=== PATIENT | male | born 1940 | race Caucasian/White ===

== ENCOUNTER → 2018-02-26 | Day surgery (SDC) | payer MEDICARE, BC ==
[~2018-02-26] MED LIST: ACETAMINOPHEN 325 MG TABLET. PO ONE; APIX5TAB PO; ATOR40TA59 PO; HYDROmorphone 2 MG/ML VIAL IV PRN; IV RINGERS,LACTATED 1000ML 1,000 ML IV SCH; LEVO100V5 IV; LEVO150T5 PO; LIDOCAINE 1% PF 2 ML VIAL. ID PRN; LISI-334 PO; METF10007 PO; MORPHINE SULFATE 2 MG/ML VIAL. IV PRN; ONDANSETRON PF 4 MG/2 ML VIAL. IV PRN; PROCHLORPERAZINE 10 MG/2 ML VIAL. IV PRN; QUIN1TAB15 PO; TAMS0.4C2 PO; fentaNYL PF VIAL 100 MCG/2 ML VIAL IV PRN
--- NOTE | 2018-02-26 11:04 | EKG ---
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
--- NOTE | 2018-02-26 12:44 | EKG ---
[facility] [address] [place] [address] Test Date: 2018-02-26 Test Time: 12:41:15 Pat Name: THAI LORENZO Department: Room: Gender: M Cit[employer] Systems Administrator: AT : 1940 Requested By: LORRIE RODRIGUEZ Order Number: [id number] Reading MD: Cem Greene Measurements Intervals [place] Rate: 74 P: 25 [place]: 212 QRS: 19 QRSD: 86 T: 24 QT: 408 QTc: 453 Interpretive Statements SINUS RHYTHM VENTRICULAR PREMATURE COMPLEX(ES) LOW LIMB LEAD VOLTAGE ABNORMAL ECG Electronically Signed On 03-02-2018 10:30:52 PACKER SAUSAGE AND WIENER by Cem Greene
[2018-02-26 12:45] VITALS: BP 134/87
--- NOTE | 2018-02-26 12:56 | PDOC4 ---
PROCEDURE Procedure PROCEDURE External cardioversion INDICATIONS Atrial fibrillation COMPLICATIONS None PROCEDURAL DETAILS An informed consent was obtained from patient. After he was given intravenous propofol by anesthesiology team, patient was administered 200 J of synchronized biphasic DC current successful conversion of rhythm from atrial fibrillation to sinus rhythm. He was hemodynamically stable without any neurological deficits at the end of procedure. There were no immediate complications. CONCLUSIONS Successful cardioversion of atrial fibrillation to sinus rhythm. CLIF MOCTEZUMA MD Feb 26, 2018 12:56
== END | disposition home or self-care (01) ==
LOC: SURG 10:01 → MERGE 12:00
PROVIDERS: ATTEND Internal Medicine Cardiovascular Disease
DX: I48.91 Unspecified atrial fibrillation (principal); I12.9 Hypertensive chronic kidney disease with stage 1 through stage 4 chronic kidney disease, or unspecified chronic kidney disease; E11.22 Type 2 diabetes mellitus with diabetic chronic kidney disease; N18.2 Chronic kidney disease, stage 2 (mild); E03.9 Hypothyroidism, unspecified; E78.5 Hyperlipidemia, unspecified; Z86.73 Personal history of transient ischemic attack (TIA), and cerebral infarction without residual deficits; Z79.84 Long term (current) use of oral hypoglycemic drugs; Z79.899 Other long term (current) drug therapy; Z90.49 Acquired absence of other specified parts of digestive tract; Z90.81 Acquired absence of spleen; Z98.890 Other specified postprocedural states; Z83.3 Family history of diabetes mellitus; Z72.0 Tobacco use
CPT/HCPCS: 82962; 92960; 93005

== ENCOUNTER 2018-04-12 08:41 | Day surgery (SDC) | payer MEDICARE, BC ==
[~2018-04-12 08:41] MED LIST changes: -ACETAMINOPHEN 325 MG TABLET. PO ONE; +DRON400T PO; -MORPHINE SULFATE 2 MG/ML VIAL. IV PRN; +MORPHINE SULFATE 4 MG/ML VIAL. IV PRN
--- NOTE | 2018-04-12 09:30 | EKG ---
[facility] [address] [place] [address] Test Date: 2018-04-12 Test Time: 09:28:11 Pat Name: THAI LORENZO Department: Room: Gender: M Payment Poster: : 1940 Requested By: CEM GREENE Order Number: [id number] Reading MD: Cem Greene Measurements Intervals [place] Rate: 70 P: [place]: QRS: 16 QRSD: 80 T: -7 QT: 438 QTc: 476 Interpretive Statements ATRIAL FIBRILLATION VENTRICULAR PREMATURE COMPLEX(ES) LOW LIMB LEAD VOLTAGE PROLONGED QT ABNORMAL ECG Electronically Signed On 04-15-2018 10:22:02 GRAIN SPOUTER by Cem Greene
[2018-04-12] MEDS ORDERED: PROPOFOL 40 ML IV ONE (09:53)
[2018-04-12] MEDS ORDERED: ePHEDrine PF IN SALINE 50 MG/5 ML DISP.SYRIN IV ONE (09:54)
[2018-04-12] MEDS ORDERED: LIDOCAINE 2% PF Vial for OR 5 ML VIAL. ONE (09:54)
--- NOTE | 2018-04-12 11:41 | PDOC4 ---
PROCEDURE Procedure PROCEDURE External cardioversion INDICATIONS Atrial fibrillation COMPLICATIONS None PROCEDURAL DETAILS An informed consent was obtained from patient. Anesthesiology team administered intravenous propofol for general anesthesia. Patient was then given 200 J of synchronized biphasic DC shock therapy with successful conversion of patient's rhythm from atrial fibrillation to sinus rhythm. He was hemodynamically stable without any neurological deficits at the end of procedure. He tolerated the procedure well. CONCLUSIONS Successful cardioversion of patient's rhythm from atrial flutter fibrillation to sinus rhythm. CLIF MOCTEZUMA MD Apr 12, 2018 11:41
--- NOTE | 2018-04-12 12:08 | EKG ---
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
== END 2018-04-12 12:50 | disposition home or self-care (01) ==
LOC: SURG 08:41
PROVIDERS: ATTEND Internal Medicine Cardiovascular Disease
DX: I48.91 Unspecified atrial fibrillation (principal); I12.9 Hypertensive chronic kidney disease with stage 1 through stage 4 chronic kidney disease, or unspecified chronic kidney disease; E11.22 Type 2 diabetes mellitus with diabetic chronic kidney disease; N18.2 Chronic kidney disease, stage 2 (mild); E03.9 Hypothyroidism, unspecified; F17.220 Nicotine dependence, chewing tobacco, uncomplicated; Z86.73 Personal history of transient ischemic attack (TIA), and cerebral infarction without residual deficits; Z90.49 Acquired absence of other specified parts of digestive tract; Z90.81 Acquired absence of spleen; Z98.890 Other specified postprocedural states; Z83.3 Family history of diabetes mellitus; Z79.84 Long term (current) use of oral hypoglycemic drugs; Z79.899 Other long term (current) drug therapy
CPT/HCPCS: 82962; 92960; 93005; J2001; J2704

== ENCOUNTER → 2019-02-28 | Outpatient (CLI) | payer MEDICARE, BC ==
[~2019-02-28] MED LIST changes: -HYDROmorphone 2 MG/ML VIAL IV PRN; -IV RINGERS,LACTATED 1000ML 1,000 ML IV SCH; -LIDOCAINE 1% PF 2 ML VIAL. ID PRN; -MORPHINE SULFATE 4 MG/ML VIAL. IV PRN; -ONDANSETRON PF 4 MG/2 ML VIAL. IV PRN; -PROCHLORPERAZINE 10 MG/2 ML VIAL. IV PRN; -fentaNYL PF VIAL 100 MCG/2 ML VIAL IV PRN
--- NOTE | 2019-02-28 10:11 | CARD ---
MR#: [id number] Date of Study: 02/28/2019 Ordering Physician: CLIF MOCTEZUMA, Referring Physician: CLIF MOCTEZUMA, Tech: Gayatri Arriola APPROVED REPORT EXAM: Two-dimensional and M-mode echocardiogram with Doppler and color Doppler. Other Information Quality : AverageHR: 67bpm INDICATION Atrial Fibrillation RISK FACTORS Hypertension 2D DIMENSIONS RVDd4.1 (2.9-3.5cm)Left Atrium(2D)4.2 (1.6-4.0cm) IVSd1.5 (0.7-1.1cm)Aortic Root(2D)3.7 (2.0-3.7cm) LVDd5.8 (3.9-5.9cm)LVOT Diameter2.5 (1.8-2.4cm) PWd1.2 (0.7-1.1cm)LVDs4.1 (2.5-4.0cm) FS (%) 29.4 %SV93.2 ml LVEF(%)55.6 (>50%) Aortic Valve AoV Peak Khang.129.4cm/sAoV VTI23.7cm AO Peak GR.6.7mmHgLVOT Peak Khang.107.3cm/s LVOT VTI 22.55cmAO Mean GR.3mmHg JOSE (VMAX)2.02su7CKD (VTI)4.77cm2 Mitral Valve MV E Rtbcoicb29.1cm/sMV DECEL VLRE275cx MV A Ftygtayf54.8cm/sMV E Mean Gr.2mmHg MV UMZ73ygM/A Ratio0.9 MVA (PHT)2.83cm2 TDI E/Lateral E'12.6E/Medial E'20.4 Pulmonary Valve PV Peak Jlekctgo67.0cm/sPV Peak Grad.3mmHg Tricuspid Valve TR P. Oyzsbygi937tn/sRAP OBBKZRCB4ilXa TR Peak Gr.10hsYnLADD02ozFk Pulmonary Vein S1 Kkwiynhi02.5cm/sD2 Jddprhkr13.3cm/s PVa oxxwwgsz191dwma LEFT VENTRICLE The left ventricle is normal size. There is mild concentric left ventricular hypertrophy. The left ve ntricular systolic function is normal and the ejection fraction is within normal range. The Ejection Fraction is 50-55%. Wall motion consistent with conduction abnormality. Transmitral Doppler flow rell adri is Grade I-abnormal relaxation pattern. RIGHT VENTRICLE The right ventricle is normal size. There is normal right ventricular wall thickness. The right ventr icular systolic function is normal. ATRIA The left atrium is borderline dilated. The right atrium is mildly dilated. The interatrial septum is intact with no evidence for an atrial septal defect or patent foramen ovale as noted on 2-D or Dopple r imaging. AORTIC VALVE The aortic valve is calcified but opens well. Doppler and Color Flow revealed trace aortic regurgitat ion. There is no significant aortic valvular stenosis. MITRAL VALVE The mitral valve is thickened but opens well. There is no evidence of mitral valve prolapse. There is no mitral valve stenosis. Doppler and Color-flow revealed trace to mild mitral regurgitation. TRICUSPID VALVE The tricuspid valve is normal in structure and function. Doppler and Color Flow revealed trace tricus pid regurgitation with an estimated PAP of 30 mmHg. There is no tricuspid valve stenosis. PULMONIC VALVE The pulmonic valve is not well visualized. Doppler and Color Flow revealed no pulmonic valvular regur gitation. GREAT VESSELS The aortic root is normal in size. The IVC is normal in size and collapses >50% with inspiration. PERICARDIAL EFFUSION There is no evidence of significant pericardial effusion. Critical Notification Critical Value: No <Conclusion> The left ventricle is normal size. The left ventricular systolic function is normal and the ejection fraction is within normal range. The Ejection Fraction is 50-55%. There is mild concentric left ventricular hypertrophy. Doppler and Color Flow revealed trace aortic regurgitation. There is no significant aortic valvular stenosis. Doppler and Color-flow revealed trace to mild mitral regurgitation. Doppler and Color Flow revealed trace tricuspid regurgitation with an estimated PAP of 30 mmHg. Signed by : Donte Laboy MD Electronically Approved : 02/28/2019 10:11:24
== END | disposition home or self-care (01) ==
LOC: ECHO 07:21
PROVIDERS: ATTEND Internal Medicine Cardiovascular Disease
DX: I08.0 Rheumatic disorders of both mitral and aortic valves (principal); I48.91 Unspecified atrial fibrillation; I10 Essential (primary) hypertension
CPT/HCPCS: 93306

== ENCOUNTER → 2020-01-03 | Outpatient (CLI) | payer MEDICARE, BC ==
[2019-03-07 11:54] VITALS: BP 131/66
[~2020-01-03] MED LIST changes: +QUIN1TAB PO; -QUIN1TAB15 PO
--- NOTE | 2020-01-03 16:44 | RAD ---
EXAM: BILATERAL DUPLEX CAROTID SONOGRAPHY INDICATION: Carotid stenosis COMPARISON: None TECHNIQUE: Duplex sonography of the cervical portion of both carotid arteries was performed. Real-time grayscale, color flow Doppler, and Doppler spectral waveform analysis is performed. NASCET criteria was used. FINDINGS: Right side: Peak systolic flow velocity of the CCA is 113 cm/sec. Peak systolic flow velocity of the ICA is 99 cm/sec. The ICA/CCA ratio is 0.87. Peak end diastolic flow velocity of the ICA is 17 cm/sec. The peak systolic velocity of the ECA is 182 cm/sec. Left side: Peak systolic flow velocity of the CCA is 120 cm/sec. Peak systolic flow velocity of the ICA is 93 cm/sec. The ICA/CCA ratio is 0.78. Peak end diastolic flow velocity of the ICA is 23 cm/sec. Peak systolic flow velocity of the ECA is 152 cm/sec. Mild intimal wall thickening bilaterally. There are calcifications of the proximal left internal carotid artery. Vertebral arteries: The right vertebral artery is not visualized. The left vertebral artery has antegrade flow. IMPRESSION: 1. 0-50 % stenosis of the internal carotid arteries per NASCET criteria. 2. Nonvisualized right vertebral artery. PQRS Compliance Statement - Stenosis calculations for CT, MR and conventional angiography are based upon measurement of the distal ICA diameter in accordance with the NASCET methodology. Stenosis calculations for carotid ultrasound studies are derived from validated velocity criteria which are known to correlate with the NASCET methodology. Electronically signed by: Myra Guillory MD (01/03/2020 4:41 PM) [id number]
--- NOTE | 2020-01-03 16:53 | RAD ---
EXAMINATION: THYROID ULTRASOUND, 01/03/2020 11:15 AM CLINICAL INDICATION: Thyroid disease, fullness of neck TECHNIQUE: Grayscale and color Doppler sonographic images of the thyroid are submitted for interpretation. COMPARISON: None. FINDINGS: The right thyroid lobe measures 3.2 x 2.6 x 2.1 cm. The left thyroid lobe measures 3.0 x 1.6 x 1.1 cm. The isthmus measures 6 mm in thickness. The thyroid gland is very heterogeneous with background nodularity. There is a discrete hyperechoic solid nodule in the right thyroid lobe measuring 1.0 x 0.8 x 1.0 cm. This has smooth margins, is taller than wide, and contains no calcifications. There are multiple lymph nodes in the right neck, largest measuring 0.9 x 0.4 x 0.6 cm. IMPRESSION: Moderately suspicious (TR 4) 1 cm solid hyperechoic right thyroid nodule. There are also several right cervical chain lymph nodes. Although the nodule does not meet size criteria for biopsy, fine-needle aspiration could be considered given the presence of lymph nodes. Electronically signed by: Myra Guillory MD (01/03/2020 4:50 PM) [id number]
== END ==
LOC: US 10:21
PROVIDERS: ATTEND Internal Medicine
DX: I65.22 Occlusion and stenosis of left carotid artery (principal); E04.1 Nontoxic single thyroid nodule; R22.1 Localized swelling, mass and lump, neck; Z86.39 Personal history of other endocrine, nutritional and metabolic disease; M54.2 Cervicalgia
CPT/HCPCS: 76536; 93880

== ENCOUNTER → 2020-01-19 | Outpatient (CLI) | payer MEDICARE, BC ==
[2019-03-07 11:54] VITALS: BP 131/66
--- NOTE | 2020-01-19 09:35 | RAD ---
EXAM: Sonographic guided thyroid fine-needle aspiration. HISTORY: 79-year-old male presents for fine-needle aspiration of a right thyroid nodule demonstrated on a sonogram performed 01/03/2020. TECHNIQUE: The risks of the procedure discussed with the patient and written and verbal consent was obtained. A timeout was performed. Sonographic imaging of the thyroid was performed on the hyperechoic nodule of concern measuring 1.4 cm within the right thyroid lobe was identified. The skin overlying this region was sterilely prepped, draped and infiltrated with 1 percent lidocaine. Multiple passes were made into the nodule with 25-gauge needle and aspirate was submitted to the pathology department for analysis. A sterile measures placed at the needle entry site. The patient tolerated the procedure without difficulty. IMPRESSION: Sonographic guided fine-needle aspiration of a when 0.4 cm hyperechoic right thyroid nodule. An addendum to this report will be submitted when pathology results are available. Electronically signed by: Lucille Luis MD (01/19/2020 9:32 AM) [id number]
--- NOTE | 2020-01-20 16:10 | PATHOLOGY ---
Note [facility] Accession Number: [id number] TESTS RESULT FLAG UNITS REF RANGE LAB Clinician Provided Cytology Information No. of containers..01 Other (Miscellaneous) Source: RIGHT THYROID DIAGNOSIS: RIGHT THYROID INCONCLUSIVE. BETHESDA CATEGORY III. ATYPIA OF UNDETERMINED SIGNIFICANCE. COLLOID IS PRESENT. THIS INTERPRETATION INCLUDES EVALUATION OF A CELL BLOCK. Pathologist ICD10: 02 R89.6 Signed out by: 02 Tyrone Wick MD, Pathologist NPI- [id number] Performed by: Lanny Farooq, Bi Data Architect ([facility]) Gross description: 01 30ML, CLEAR COLORLESS, 2FX 2AD 2H /LCS 01/19/2020 1548 Local FLAG LEGEND: L-Low Normal,H-High Normal,LL-Alert Low,HH-Alert High <-Panic Low,>-Panic High,A-Abnormal,AA-Critical Abnormal Performed at: 01 [employer] [facility] [address] [facility] [address] [place] [address] Mario Montaño MD, 02 M:[facility] [address] [address] Tyrone Wick MD, Specimen Comment: A courtesy copy of this report has been sent to [phone], [phone] Specimen Comment: [id number] Specimen Comment: [id number] Specimen Comment: Report sent to DR FRANCO / DR PETERSON,DR JENNINGS Specimen Comment: A duplicate report has been generated due to demographic updates. Performed at: 01 [facility] [id number] [facility] [address], [place], [place] [id number] MD Mario Montaño MD Phone: [phone]
== END | disposition home or self-care (01) ==
LOC: US 08:24
PROVIDERS: ATTEND Internal Medicine
DX: E04.1 Nontoxic single thyroid nodule (principal); E78.00 Pure hypercholesterolemia, unspecified; I48.91 Unspecified atrial fibrillation; I12.9 Hypertensive chronic kidney disease with stage 1 through stage 4 chronic kidney disease, or unspecified chronic kidney disease; E11.22 Type 2 diabetes mellitus with diabetic chronic kidney disease; N18.2 Chronic kidney disease, stage 2 (mild); E03.9 Hypothyroidism, unspecified; F17.210 Nicotine dependence, cigarettes, uncomplicated; Z90.49 Acquired absence of other specified parts of digestive tract; Z98.890 Other specified postprocedural states; Z79.82 Long term (current) use of aspirin; Z79.84 Long term (current) use of oral hypoglycemic drugs; Z79.899 Other long term (current) drug therapy; Z80.3 Family history of malignant neoplasm of breast
CPT/HCPCS: 10005; 60300; 76942; 88173; 88305

== ENCOUNTER → 2020-03-20 | Outpatient (CLI) | payer MEDICARE, BC ==
[2019-03-07 11:54] VITALS: BP 131/66
[~2020-03-20] MED LIST changes: -DRON400T PO; +DRON400T6 PO; -LISI-334 PO; +LISI20TA18 PO; +PERFLUTREN PROTEIN-A MICROSPHR 0.22 MG/ML 3 ML VIAL. IV ONE
--- NOTE | 2020-03-20 18:37 | CARD ---
MR#: [id number] Date of Study: 03/20/2020 Ordering Physician: CLIF MOCTEZUMA, Referring Physician: CLIF MOCTEZUMA Tech: Alicia Abbott SUNITHA APPROVED REPORT EXAM: Two-dimensional and M-mode echocardiogram with Doppler and color Doppler. Other Information Quality : Technically LimitedHR: 68bpm Rhythm : Atrial FibrillationTechnically limited study due to body habitus. INDICATION Dyspnea CAD Echo Enhancing Agent Indication: Endocardial border delineation Agent/Amount Used: Optison 3mL RISK FACTORS Hypertension Obesity Hyperlipidemia Diabetes 2D DIMENSIONS Left Atrium(2D)4.2 (1.6-4.0cm)IVSd1.7 (0.7-1.1cm) Aortic Root(2D)3.8 (2.0-3.7cm)LVDd4.2 (3.9-5.9cm) LVOT Diameter2.6 (1.8-2.4cm)PWd1.5 (0.7-1.1cm) LVDs3.5 (2.5-4.0cm)FS (%) 16.7 % SV28.4 ml Aortic Valve AoV Peak Khang.153.9cm/sAoV VTI33.8cm AO Peak GR.9.5mmHgLVOT Peak Khang.130.7cm/s AO Mean GR.5mmHgAVA (VMAX)4.55cm2 Mitral Valve MV E Bcsteosv30.0cm/sMV DECEL XXDB741tw MV A Ncxmdkid712.4cm/sE/A Ratio0.7 Tricuspid Valve TR P. Wwwxwqdt393qn/sTR Peak Gr.37mmHg LEFT VENTRICLE The left ventricle is normal size. There is mild concentric left ventricular hypertrophy. The left ve ntricular systolic function is normal and the ejection fraction is within normal range. Ejection fra ction 55-60% There is normal LV segmental wall motion. Tissue Doppler imaging reveals mild left ventr icular diastolic dysfunction. RIGHT VENTRICLE The right ventricle is normal size. There is normal right ventricular wall thickness. The right ventr icular systolic function is normal. ATRIA The left atrium is mildly dilated. The right atrium is mildly dilated. The interatrial septum is inta ct with no evidence for an atrial septal defect or patent foramen ovale as noted on 2-D or Doppler im aging. AORTIC VALVE The aortic valve is normal in structure and function. Doppler and Color Flow revealed trace aortic re gurgitation. There is no significant aortic valvular stenosis. MITRAL VALVE The mitral valve is normal in structure and function. There is no evidence of mitral valve prolapse. There is no mitral valve stenosis. Doppler and Color Flow revealed mild to moderate mitral regurgitat ion. TRICUSPID VALVE The tricuspid valve is normal in structure and function. Doppler and Color Flow revealed mild tricusp id regurgitation. Estimated PAP 40 mmHg. PULMONIC VALVE The pulmonary valve is normal in structure and function. Doppler and Color Flow revealed trace pulmon ic valvular regurgitation. GREAT VESSELS The aortic root is mildly enlarged. The ascending aorta is mildly dilated. The IVC is normal in size and collapses >50% with inspiration. PERICARDIAL EFFUSION There is no evidence of significant pericardial effusion. Critical Notification Critical Value: No <Conclusion> The left ventricle is normal size. The left ventricular systolic function is normal and the ejection fraction is within normal range. Ejection fraction 55-60% There is mild concentric left ventricular hypertrophy. Doppler and Color Flow revealed trace aortic regurgitation. There is no significant aortic valvular stenosis. Doppler and Color Flow revealed mild to moderate mitral regurgitation. Doppler and Color Flow revealed mild tricuspid regurgitation. Estimated PAP 40 mmHg. The ascending aorta is mildly dilated. The aortic root is mildly enlarged. Signed by : Donte Laboy MD Electronically Approved : 03/20/2020 18:36:54
== END ==
LOC: ECHO 07:36
PROVIDERS: ATTEND Internal Medicine Cardiovascular Disease
DX: I08.1 Rheumatic disorders of both mitral and tricuspid valves (principal); I77.810 Thoracic aortic ectasia; I48.91 Unspecified atrial fibrillation; I25.10 Atherosclerotic heart disease of native coronary artery without angina pectoris
CPT/HCPCS: C8929; Q9956

== ENCOUNTER → 2020-04-26 | Outpatient (CLI) | payer MEDICARE, BC ==
[2019-03-07 11:54] VITALS: BP 131/66
[~2020-04-26] MED LIST changes: +DRON400T PO; -DRON400T6 PO; -PERFLUTREN PROTEIN-A MICROSPHR 0.22 MG/ML 3 ML VIAL. IV ONE
--- NOTE | 2020-04-26 16:56 | RAD ---
EXAM: Thyroid Ultrasound INDICATION: Reason: THYROID NODULE / Spl. Instructions: / History: ? TECHNIQUE: Real-time ultrasound of the thyroid was performed with permanent freeze-frame documentatio n. COMPARISON: Thyroid ultrasound of 01/03/2020 and thyroid ultrasound guided biopsy of 01/19/2020. ? FINDINGS: THYROID: Thyroid gland is mildly heterogeneous in echogenicity. ? Right Lobe: 2.9 x 2.0 x 2.2 cm. Echogenic nodule in the midpole measuring 0.8 x 0.8 x 1.3 cm is again identified. This was the target of recent biopsy. It is unchanged in size, previously measuring 0.9 x 0.9 x 1.2 cm, allowing for variability in measurement. Its solid (2), hyperechoic (1), taller than wide (3), smooth (0) morphology with no comet tail artifacts (0) gives it a total points score of 6 f or a TI RADS level 4. ? Left Lobe: 3.4 x 1.6 x 1.3 cm. ? Isthmus: 0.4 cm. ?? ? OTHER: No evidence of adjacent cervical adenopathy. ? IMPRESSION: ? Heterogeneous thyroid gland showing unchanged 1.3 echogenic nodule in the right thyroid lobe, recentl y having undergone biopsy. Please see biopsy report of 01/19/2020 for additional details. Electronically signed by: Shiraz Lujan MD (04/26/2020 4:54 PM) [id number]
== END ==
LOC: US 11:08
PROVIDERS: ATTEND Internal Medicine
DX: E04.1 Nontoxic single thyroid nodule (principal)
CPT/HCPCS: 76536

== ENCOUNTER 2020-06-16 03:23 | Emergency (ER) | payer MEDICARE, BC ==
[~2020-06-16] VITALS: Ht 180.3 cm; Wt 119.1 kg
[2020-06-16] MEDS ORDERED: LIDOCAINE 1% Multi-Dose 20 ML VIAL. ONE (03:41)
[2020-06-16] MEDS ORDERED: LIDOCAINE 2%/EPI 1:100,000 20 ML VIAL. INJ ONE (03:45)
[2020-06-16 03:55] VITALS: BP 176/104
[2020-06-16] MEDS ORDERED: TRANEXAMIC ACID 1,000 MG/10 ML VIAL. TOP ONE (04:00)
--- NOTE | 2020-06-16 04:08 | PHYS DOC ---
Past Medical History Past Medical History: A-Fib, Diabetes-Type II, Hypertension, Hypothyroid, Stroke Past Surgical History: Cholecystectomy, Splenectomy Smoking Status: Current Every Day Smoker Additional Information: CHEWING TOBACCO Alcohol Use: None Drug Use: None General Adult EDM: Chief Complaint: LACERATION/AVULSION HPI: HPI: 79-year-old male presents for evaluation of laceration to left hand. Patient states around 1400 hrs. yesterday he was working on a lawnmower and cut his left hand on the motor pull rope. Laceration is approximately 1 and half centimeters posterior surface just lateral to his thumb. Patient is on blood thinning medications. Initially patient had difficulty controlling the bleeding but was eventually able to do so. Prior to arrival patient had awakened and wound was bleeding. Patient was unable to to get the bleeding stopped so he presented here for further evaluation. Review of Systems: Review of Systems: Constitutional: Denies fever or chills. [] Eyes: Denies change in visual acuity. [] HENT: Denies nasal congestion or sore throat. [] Respiratory: Denies cough or shortness of breath. [] Cardiovascular: Denies chest pain or edema. [] GI: Denies abdominal pain, nausea, vomiting, bloody stools or diarrhea. [] : Denies dysuria. [] Musculoskeletal: Denies back pain or joint pain. [] Integument: Denies rash. [Positive laceration] Neurologic: Denies headache, focal weakness or sensory changes. [] Endocrine: Denies polyuria or polydipsia. [] Lymphatic: Denies swollen glands. [] Psychiatric: Denies depression or anxiety. [] Heart Score: C/O Chest Pain: N/A Risk Factors: Risk Factors: DM, Current or recent (<one month) smoker, HTN, HLP, family history of CAD, obesity. Risk Scores: Score 0 - 3: 2.5% MACE over next 6 weeks - Discharge Home Score 4 - 6: 20.3% MACE over next 6 weeks - Admit for Clinical Observation Score 7 - 10: 72.7% MACE over next 6 weeks - Early Invasive Strategies Current Medications: Current Medications Medications (Trade) Dose Ordered Sig/Rosanna Start Time Stop Time Status Last Admin Dose Admin Lidocaine HCl (Lidocaine 1% 20ml Vial) 20 ml STK-MED ONCE 06/16/20 03:41 06/16/20 03:42 DC Lidocaine/ Epinephrine (LIDOCAINE 2%-EPI 1:100,000 multi-dose) 20 ml 1X ONCE 06/16/20 03:45 06/16/20 03:52 DC Tranexamic Acid (Cyklokapron) 1,000 mg 1X ONCE 06/16/20 04:00 06/16/20 04:01 DC 06/16/20 03:56 1,000 MG Allergies: Allergies: Allergies Coded Allergies Type Severity Reaction Last Updated Verified No Known Drug Allergies 04/12/18 No Physical Exam: PE: General: alert, no acute distress. Skin: warm, dry and intact. Laceration 1 and half centimeters posterior aspect just lateral to the thumb. Head:: Normocephalic, atraumatic. Neck: Trachea midline. Eyes: EOMI, Normal conjunctiva, No drainage CARDIOVASCULAR: Regular rate and rhythm RESPIRATORY: No respiratory distress Back: Full range of motion. MUSCULOSKELETAL: Full range of motion of bilateral upper and lower extremities. GASTROINTESTINAL: Abdomen soft without rebound or guarding. NEUROLOGICAL: Alert and noted to person, place and time. No neurological deficits observed Psychiatric: Cooperative. Normal judgment Current Patient Data: Vital Signs: Vital Signs Date Time Temp Pulse Resp B/P (MAP) Pulse Ox O2 Delivery O2 Flow Rate FiO2 06/16/20 03:25 98.2 57 20 164/122 (136) 95 Room Air 98.2 EKG: EKG: [] Radiology/Procedures: Radiology/Procedures: [] Course & Med Decision Making: Course & Med Decision Making Pertinent Labs and Imaging studies reviewed. (See chart for details) [] Procedure 3 simple interrupted sutures 5.0 nylon placed. Patient tolerated no complications After sutures placed low bleed from needle sites. TXA approximately 10 cc was soaked on gauze and wound bleeding controlled and stopped Patient had advised to to have sutures out in approximately 7 days Dragon Disclaimer: Dragon Disclaimer: This electronic medical record was generated, in whole or in part, using a voice recognition dictation system. Departure Departure Impression: Primary Impression: Laceration Disposition: 01 DC HOME SELF CARE/HOMELESS Condition: STABLE Referrals: NASH JENNINGS MD (PCP) Patient Instructions: Laceration Care, Adult LEONARDO FERNANDES DO Jun 16, 2020 04:08
== END 2020-06-16 04:12 | disposition home or self-care (01) ==
LOC: ER 03:23
DX: S61.412A Laceration without foreign body of left hand, initial encounter (principal); I48.20 Chronic atrial fibrillation, unspecified; E11.9 Type 2 diabetes mellitus without complications; I10 Essential (primary) hypertension; E03.9 Hypothyroidism, unspecified; I25.2 Old myocardial infarction; F17.200 Nicotine dependence, unspecified, uncomplicated; Z90.49 Acquired absence of other specified parts of digestive tract; Z90.89 Acquired absence of other organs; W26.8XXA Contact with other sharp object(s), not elsewhere classified, initial encounter; Y93.89 Activity, other specified; Y92.89 Other specified places as the place of occurrence of the external cause; Y99.8 Other external cause status
CPT/HCPCS: 12001; 99282; J3490

== ENCOUNTER 2020-08-13 18:59 | Emergency (ER) | payer MEDICARE, BC ==
[~2020-08-13] VITALS: Ht 180.3 cm; Wt 120.0 kg
[~2020-08-13 18:59] MED LIST changes: -DRON400T PO; +DRON400T6 PO
[2020-08-13 20:44] LABS: BASO # 0.1 x10^3/uL (0.0-0.2); BASO % 1 % (0-3); EOS # 0.3 x10^3/uL (0.0-0.7); EOS % 3 % (0-3); HEMATOCRIT 42.3 % (39.0-53.0); HEMOGLOBIN 14.1 g/dL (13.0-17.5); LYMPH # 2.6 x10^3/uL (1.0-4.8); LYMPH % 21 % (24-48); MEAN CORPUSCULAR HEMOGLOBIN 31 pg (25-35); MEAN CORPUSCULAR HGB CONC 33 g/dL (31-37); MEAN CORPUSCULAR VOLUME 94 fL (79-100); MONO % 8 % (0-9); NEUT # 8.5 x10^3/uL (1.8-7.7); NEUT % 68 % (31-73); PLATELET COUNT 299 x10^3/uL (140-400); RED CELL DISTRIBUTION WIDTH 14.9 % (11.5-14.5); WHITE BLOOD COUNT 12.5 x10^3/uL (4.0-11.0)
[2020-08-13 20:50] LABS: CALCIUM 9.1 mg/dL (8.5-10.1); GFR 72.1; POTASSIUM 4.4 mmol/L (3.5-5.1)
--- NOTE | 2020-08-13 20:58 | RAD ---
Exam: CT head without contrast. Date: 08/13/2020, comparison:None available Indication: Difficulty speech Technique: 5 mm axial images of the head were obtained without contrast. Findings: There is low attenuation within the periventricular white matter consistent with chronic small vessel ischemic disease. Prominence of cortical sulci and ventricular system is noted. There is cerebral at rophy. Midline structures are central. No hydrocephalus. No suspicious cerebral edema. No mass lesion or mid line shift is seen. No extra axial fluid collection, intracranial hemorrhage or acute ischemia is de tected. The visualized paranasal sinuses and mastoid air cells are clear. The osseous calvarium appea rs unremarkable. Impression: 1.Chronic small vessel ischemic disease and cerebral atrophy. 2.No acute findings. PQRS Compliance Statement: One or more of the following individualized dose reduction techniques were utilized for this examinat ion: 1. Automated exposure control 2. Adjustment of the mA and/or kV according to patient size 3. Use of iterative reconstruction technique Electronically signed by: Lila Alegria MD (08/13/2020 8:55 PM) [facility]
[2020-08-13 21:47] LABS: BILIRUBIN,URINE NEGATIVE (NEG); CLARITY,URINE CLEAR; COLOR,URINE YELLOW; NITRITE,URINE NEGATIVE (NEG); PH,URINE 6.5 (<5.0-8.0); PROTEIN,URINE NEGATIVE (NEG-TRACE)
[2020-08-13 21:56] LABS: BACTERIA,URINE 0 /HPF (0-FEW)
[2020-08-13 21:58] LABS: RBC,URINE RARE /HPF (0-2); WBC,URINE RARE /HPF (0-4)
--- NOTE | 2020-08-13 22:07 | ED.ADGEN ---
Past Medical History Past Medical History: A-Fib, Diabetes-Type II, Hypertension, Hypothyroid, TIA Past Surgical History: Cholecystectomy, Splenectomy Smoking Status: Never Smoker Additional Information: Chews tobacco Alcohol Use: Rarely Drug Use: None General Adult EDM: Chief Complaint: DIZZY/LIGHT HEADED HPI: HPI: Patient is a 80-year-old male past medical history of atrial fibrillation who presents to the emergency room after having a episode of lightheadedness yesterd ay. He states that during the episode he had a hard time thinking of a couple of words. He states that this happened to him 1 other time and that that was when he was diagnosed with atrial fibrillation. He was cardioverted after that and has not had any issues since that time. He follows up with Dr. Greene. Patient states that he feels completely back to normal at this time. He states he just came to get checked out. He does not want to be admitted to the hospital. He denies any kind of pain. He denies chest pain, shortness of breath, headache, numbness, weakness, speech difficulty Review of Systems: Review of Systems: Complete ROS is negative unless otherwise documented in HPI Allergies: Allergies: Allergies Coded Allergies Type Severity Reaction Last Updated Verified No Known Drug Allergies 04/12/18 No Physical Exam: PE: General: Awake, alert, NAD. Well Nourished, well hydrated. Cooperative HEENT: Atraumatic, EOMI, PERRL, airway patent, moist oral mucosa Neck: Supple, trachea midline Respiratory: CTA bilaterally, normal effort, no wheezing/crackles CV: RRR, no murmur, cap refill <2 GI: Soft, nondistended, nontender, no masses MSK: No obvious deformities Skin: Warm, dry, intact Neuro: A&O x3, speech NL, 5/5 strength in BUE/BLE distally and proximally, CN 2- 12 intact, cerebellar testing normal Psych: Normal affect, normal mood, not suicidal or homicidal Current Patient Data: Labs: Laboratory Tests Test 08/13/20 20:10 08/13/20 21:40 White Blood Count 12.5 x10^3/uL (4.0-11.0) H Red Blood Count 4.50 x10^6/uL (4.30-5.70) Hemoglobin 14.1 g/dL (13.0-17.5) Hematocrit 42.3 % (39.0-53.0) Mean Corpuscular Volume 94 fL (79-100) Mean Corpuscular Hemoglobin 31 pg (25-35) Mean Corpuscular Hemoglobin Concent 33 g/dL (31-37) Red Cell Distribution Width 14.9 % (11.5-14.5) H Platelet Count 299 x10^3/uL (140-400) Neutrophils (%) (Auto) 68 % (31-73) Lymphocytes (%) (Auto) 21 % (24-48) L Monocytes (%) (Auto) 8 % (0-9) Eosinophils (%) (Auto) 3 % (0-3) Basophils (%) (Auto) 1 % (0-3) Neutrophils # (Auto) 8.5 x10^3/uL (1.8-7.7) H Lymphocytes # (Auto) 2.6 x10^3/uL (1.0-4.8) Monocytes # (Auto) 1.0 x10^3/uL (0.0-1.1) Eosinophils # (Auto) 0.3 x10^3/uL (0.0-0.7) Basophils # (Auto) 0.1 x10^3/uL (0.0-0.2) Sodium Level 142 mmol/L (136-145) Potassium Level 4.4 mmol/L (3.5-5.1) Chloride Level 106 mmol/L (98-107) Carbon Dioxide Level 32 mmol/L (21-32) Anion Gap 4 (6-14) L Blood Urea Nitrogen 11 mg/dL (8-26) Creatinine 1.0 mg/dL (0.7-1.3) Estimated GFR (Cockcroft-Gault) 72.1 Glucose Level 123 mg/dL (70-99) H Calcium Level 9.1 mg/dL (8.5-10.1) Troponin I Quantitative < 0.017 ng/mL (0.000-0.055) Urine Collection Type Unknown Urine Color Yellow Urine Clarity Clear Urine pH 6.5 (<5.0-8.0) Urine Specific [place] 1.020 (1.000-1.030) Urine Protein Negative mg/dL (NEG-TRACE) Urine Glucose (UA) Negative mg/dL (NEG) Urine Ketones (Stick) Negative mg/dL (NEG) Urine Blood Negative (NEG) Urine Nitrite Negative (NEG) Urine Bilirubin Negative (NEG) Urine Urobilinogen Dipstick 4.0 mg/dL (0.2 mg/dL) Urine Leukocyte Esterase Negative (NEG) Urine RBC Rare /HPF (0-2) Urine WBC Rare /HPF (0-4) Urine Squamous Epithelial Cells Occ /LPF Urine Bacteria 0 /HPF (0-FEW) Laboratory Tests 08/13/20 20:10 Laboratory Tests 08/13/20 20:10 Vital Signs: Vital Signs Date Time Temp Pulse Resp B/P (MAP) Pulse Ox O2 Delivery O2 Flow Rate FiO2 08/13/20 22:30 65 18 198/98 (131) 97 08/13/20 19:44 Room Air 08/13/20 19:15 98.0 98.0 EKG: EKG: [] Heart Score: C/O Chest Pain: N/A Risk Factors: Risk Factors: DM, Current or recent (<one month) smoker, HTN, HLP, family history of CAD, obesity. Risk Scores: Score 0 - 3: 2.5% MACE over next 6 weeks - Discharge Home Score 4 - 6: 20.3% MACE over next 6 weeks - Admit for Clinical Observation Score 7 - 10: 72.7% MACE over next 6 weeks - Early Invasive Strategies Radiology/Procedures: Radiology/Procedures: [] Course & Med Decision Making: Course & Med Decision Making Pertinent Labs and Imaging studies reviewed. (See chart for details) Patient is a 80-year-old male who presents to the emergency room after having an episode of dizziness yesterday. Patient is feeling completely better now. Lab work was done along with EKG and CT of the head which were all normal. Patient would like to go home. He is asymptomatic with a normal exam at this time. Patient's test results and vitals while in the ED were fully reviewed and discussed with the patient. Patient is stable and at this time does not need admission to the hospital. We have discussed strict return precautions and the importance of following up with their Primary Care Physician. Patient stated understanding and was given an opportunity to ask any questions. Patient is in agreement with plan. Dragon Disclaimer: Dragon Disclaimer: This electronic medical record was generated, in whole or in part, using a voice recognition dictation system. Departure Departure Impression: Primary Impression: Dizzy Disposition: HOME / SELF CARE / HOMELESS Condition: STABLE Referrals: NASH JENNINGS MD (PCP) Patient Instructions: YANI Tony MD August 13, 2020 22:07
[2020-08-13 22:30] VITALS: BP 198/98
== END 2020-08-13 22:34 | disposition home or self-care (01) ==
LOC: ER 18:59
DX: R42 Dizziness and giddiness (principal); I48.91 Unspecified atrial fibrillation; E11.9 Type 2 diabetes mellitus without complications; I10 Essential (primary) hypertension; E03.9 Hypothyroidism, unspecified; F17.220 Nicotine dependence, chewing tobacco, uncomplicated; Z86.73 Personal history of transient ischemic attack (TIA), and cerebral infarction without residual deficits
CPT/HCPCS: 36415; 70450; 80048; 81001; 84484; 85025; 99284-25

== ENCOUNTER → 2021-03-06 | Outpatient (CLI) | payer MEDICARE, BC ==
--- NOTE | 2021-03-06 10:19 | KCIC ---
EXAM: Pelvis and right hip, 2 views. HISTORY: Pain. COMPARISON: None. FINDINGS: A frontal view of the pelvis and frog-leg view the right hip are obtained. There is no frac ture, dislocation or subluxation. There is left hip joint space narrowing. There is moderate bilatera l acetabular and femoral head spurring. There is degenerative subchondral cyst formation involving th e superolateral acetabula. 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 Electronically signed by: Lucille Luis MD (03/06/2021 10:17 AM) [id number]
--- NOTE | 2021-03-06 10:20 | KCIC ---
EXAM: Lumbar spine, 3 views. HISTORY: Pain. COMPARISON: None. FINDINGS: 3 views of the lumbar spine are obtained. There is mild lumbar levoscoliosis. There is no l isthesis. There is multilevel endplate remodeling. There is disc space narrowing predominantly at L5- S1. There is advanced facet arthropathy predominantly at the mid lower lumbar levels. There is no acu te fracture. IMPRESSION: Multilevel degenerative change throughout the lumbar spine, primarily at the lumbosacral junction. No acute osseous finding. Electronically signed by: Lucille Luis MD (03/06/2021 10:17 AM) [id number]
--- NOTE | 2021-03-06 10:55 | KCIC ---
EXAM: Bilateral ribs, 7 views. HISTORY: Pain. COMPARISON: None. FINDINGS: 7 views of the ribs are obtained. There are healed or healing lateral left sixth and sevent h rib fractures. There is pseudoarticulation of the left first and second ribs, a normal variant. The re is mild osteoarthritis involving both shoulders. There is a suspected trace left pleural effusion. There are cholecystectomy clips. IMPRESSION: 1. Healed or healing left sixth and seventh rib fractures. 2. Suspected trace left pleural effusion. Electronically signed by: Lucille Luis MD (03/06/2021 10:53 AM) [id number]
== END ==
LOC: KCIC 08:23
PROVIDERS: ATTEND Internal Medicine
DX: S22.42XD Multiple fractures of ribs, left side, subsequent encounter for fracture with routine healing (principal); M19.011 Primary osteoarthritis, right shoulder; M19.012 Primary osteoarthritis, left shoulder; M47.816 Spondylosis without myelopathy or radiculopathy, lumbar region; M41.86 Other forms of scoliosis, lumbar region; M48.07 Spinal stenosis, lumbosacral region; M48.8X6 Other specified spondylopathies, lumbar region; M16.0 Bilateral primary osteoarthritis of hip; M25.852 Other specified joint disorders, left hip; M76.892 Other specified enthesopathies of left lower limb, excluding foot; M76.891 Other specified enthesopathies of right lower limb, excluding foot; M25.551 Pain in right hip; X58.XXXD Exposure to other specified factors, subsequent encounter; Y04.0XXA Assault by unarmed brawl or fight, initial encounter; Z90.49 Acquired absence of other specified parts of digestive tract
CPT/HCPCS: 71110; 72100; 73501

== ENCOUNTER → 2021-03-12 | Outpatient (CLI) | payer MEDICARE, BC ==
--- NOTE | 2021-03-12 15:47 | RAD ---
EXAM: Renal sonogram. HISTORY: Flank pain. TECHNIQUE: Sonographic imaging the kidneys and bladder was performed. COMPARISON: None. FINDINGS: The kidneys are normal in size. There is no hydronephrosis. There are simple renal cysts, t he largest of which is seen on the left measuring 6.3 cm. Follow-up is not routinely performed for si mple cysts. No solid renal lesion is seen. The bladder is nearly empty. IMPRESSION: 1. Simple appearing renal cysts. 2. No acute sonographic finding. Electronically signed by: Lucille Luis MD (03/12/2021 3:44 PM) [id number]
== END ==
LOC: US 15:03
PROVIDERS: ATTEND Internal Medicine
DX: N28.1 Cyst of kidney, acquired (principal); Z79.01 Long term (current) use of anticoagulants; Y04.0XXA Assault by unarmed brawl or fight, initial encounter
CPT/HCPCS: 76770

== ENCOUNTER 2021-05-30 19:08 | Emergency (ER) | payer MEDICARE, BC ==
[~2021-05-30] VITALS: Ht 180.3 cm; Wt 113.6 kg
[2021-05-30 20:25] LABS: BASO # 0.1 x10^3/uL (0.0-0.2); BASO % 1 % (0-3); EOS # 0.3 x10^3/uL (0.0-0.7); EOS % 3 % (0-3); HEMATOCRIT 43.6 % (39.0-53.0); HEMOGLOBIN 14.6 g/dL (13.0-17.5); LYMPH # 1.8 x10^3/uL (1.0-4.8); LYMPH % 23 % (24-48); MEAN CORPUSCULAR HEMOGLOBIN 31 pg (25-35); MEAN CORPUSCULAR HGB CONC 33 g/dL (31-37); MEAN CORPUSCULAR VOLUME 93 fL (79-100); MONO # 0.9 x10^3/uL (0.0-1.1); MONO % 11 % (0-9); NEUT # 4.9 x10^3/uL (1.8-7.7); NEUT % 62 % (31-73); PLATELET COUNT 274 x10^3/uL (140-400); RED BLOOD COUNT 4.68 x10^6/uL (4.30-5.70); RED CELL DISTRIBUTION WIDTH 14.8 % (11.5-14.5); WHITE BLOOD COUNT 7.9 x10^3/uL (4.0-11.0)
[2021-05-30 20:33] LABS: CALCIUM 8.9 mg/dL (8.5-10.1); CREATININE 0.9 mg/dL (0.7-1.3); GFR 81.4; POTASSIUM 4.1 mmol/L (3.5-5.1)
--- NOTE | 2021-05-30 20:36 | ED.ADGEN ---
Past Medical History Past Medical History: A-Fib, Diabetes-Type II, Hypertension, Hypothyroid, TIA Past Surgical History: Cholecystectomy, Splenectomy Additional Past Surgical Histo: heart ablation, hernia repair, Smoking Status: Never Smoker Alcohol Use: Rarely Drug Use: None General Adult EDM: Chief Complaint: DIZZY/LIGHT HEADED HPI: HPI: Patient is a 80-year-old male who presents to the emergency room complaining of dizziness. Patient states that this started a couple of days ago and states that he has had increased stress over the last couple of days. He is unsure if this is related. He has had episodes like this previously the last one being last July. At that time he was in atrial fibrillation which resolved on its own. Patient is on chronic Eliquis and has had an ablation for A. fib in the past. He states his last several visits to the photo retoucher he was in normal sinus rhythm. He denies any chest pain, shortness of breath, nausea, vomiting. He states that the dizziness is getting better. He would like to go home today if possible. Review of Systems: Review of Systems: Complete ROS is negative unless otherwise documented in HPI Allergies: Allergies: Allergies Coded Allergies Type Severity Reaction Last Updated Verified No Known Drug Allergies 05/30/21 No Physical Exam: PE: See Above Constitutional: Well developed, well nourished, no acute distress, non-toxic appearance. [] HENT: Normocephalic, atraumatic, bilateral external ears normal, oropharynx moist, no oral exudates, nose normal. [] Eyes: PERRLA, EOMI, conjunctiva normal, no discharge. [] Neck: Normal range of motion, no tenderness, supple, no stridor. [] Cardiovascular:Heart rate normal, irregularly irregular rhythm, no murmur [] Lungs & Thorax: Bilateral breath sounds clear to auscultation [] Abdomen: Bowel sounds normal, soft, no tenderness, no masses, no pulsatile masses. [] Skin: Warm, dry, no erythema, no rash. [] Back: No tenderness, no CVA tenderness. [] Extremities: No tenderness, no cyanosis, no clubbing, ROM intact, no edema. [] Neurologic: Alert and oriented X 3, normal motor function, normal sensory function, no focal deficits noted. [] Psychologic: Affect normal, judgement normal, mood normal. [] Current Patient Data: Labs: Laboratory Tests Test 05/30/21 20:10 05/30/21 21:10 White Blood Count 7.9 x10^3/uL (4.0-11.0) Red Blood Count 4.68 x10^6/uL (4.30-5.70) Hemoglobin 14.6 g/dL (13.0-17.5) Hematocrit 43.6 % (39.0-53.0) Mean Corpuscular Volume 93 fL (79-100) Mean Corpuscular Hemoglobin 31 pg (25-35) Mean Corpuscular Hemoglobin Concent 33 g/dL (31-37) Red Cell Distribution Width 14.8 % (11.5-14.5) H Platelet Count 274 x10^3/uL (140-400) Neutrophils (%) (Auto) 62 % (31-73) Lymphocytes (%) (Auto) 23 % (24-48) L Monocytes (%) (Auto) 11 % (0-9) H Eosinophils (%) (Auto) 3 % (0-3) Basophils (%) (Auto) 1 % (0-3) Neutrophils # (Auto) 4.9 x10^3/uL (1.8-7.7) Lymphocytes # (Auto) 1.8 x10^3/uL (1.0-4.8) Monocytes # (Auto) 0.9 x10^3/uL (0.0-1.1) Eosinophils # (Auto) 0.3 x10^3/uL (0.0-0.7) Basophils # (Auto) 0.1 x10^3/uL (0.0-0.2) Sodium Level 138 mmol/L (136-145) Potassium Level 4.1 mmol/L (3.5-5.1) Chloride Level 103 mmol/L (98-107) Carbon Dioxide Level 26 mmol/L (21-32) Anion Gap 9 (6-14) Blood Urea Nitrogen 11 mg/dL (8-26) Creatinine 0.9 mg/dL (0.7-1.3) Estimated GFR (Cockcroft-Gault) 81.4 BUN/Creatinine Ratio 12 (6-20) Glucose Level 107 mg/dL (70-99) H Calcium Level 8.9 mg/dL (8.5-10.1) Magnesium Level 1.9 mg/dL (1.8-2.4) Total Bilirubin 0.5 mg/dL (0.2-1.0) Aspartate Amino Transferase (AST) 14 U/L (15-37) L Alanine Aminotransferase (ALT) 21 U/L (16-63) Alkaline Phosphatase 92 U/L (46-116) Troponin I High Sensitivity 11 ng/L (4-75) CU-Jey-R-Type Natriuretic Peptide 209 pg/mL (0-449) Total Protein 6.8 g/dL (6.4-8.2) Albumin 3.4 g/dL (3.4-5.0) Albumin/Globulin Ratio 1.0 (1.0-1.7) Urine Collection Type Unknown Urine Color Yellow Urine Clarity Clear Urine pH 7.0 (<5.0-8.0) Urine Specific [place] 1.015 (1.000-1.030) Urine Protein Negative mg/dL (NEG-TRACE) Urine Glucose (UA) Negative mg/dL (NEG) Urine Ketones (Stick) Negative mg/dL (NEG) Urine Blood Negative (NEG) Urine Nitrite Negative (NEG) Urine Bilirubin Negative (NEG) Urine Urobilinogen Dipstick 1.0 mg/dL (0.2 mg/dL) Urine Leukocyte Esterase Negative (NEG) Urine RBC 0 /HPF (0-2) Urine WBC Occ /HPF (0-4) Urine Squamous Epithelial Cells Occ /LPF Urine Bacteria 0 /HPF (0-FEW) Laboratory Tests 05/30/21 20:10 Laboratory Tests 05/30/21 20:10 Vital Signs: Vital Signs Date Time Temp Pulse Resp B/P (MAP) Pulse Ox O2 Delivery O2 Flow Rate FiO2 05/30/21 21:58 57 16 178/91 (120) 95 Room Air 05/30/21 19:10 98.2 98.2 EKG: EKG: [] Heart Score: C/O Chest Pain: N/A Risk Factors: Risk Factors: DM, Current or recent (<one month) smoker, HTN, HLP, family history of CAD, obesity. Risk Scores: Score 0 - 3: 2.5% MACE over next 6 weeks - Discharge Home Score 4 - 6: 20.3% MACE over next 6 weeks - Admit for Clinical Observation Score 7 - 10: 72.7% MACE over next 6 weeks - Early Invasive Strategies Radiology/Procedures: Radiology/Procedures: [] Course & Med Decision Making: Course & Med Decision Making Pertinent Labs and Imaging studies reviewed. (See chart for details) Patient is a 80-year-old male with a history of atrial fibrillation who presents to the emergency room complaining of generalized weakness and dizziness. History and exam are significant for history of atrial fibrillation. Patient does not have any signs of trauma. Given age and history differential for generalized weakness includes dehydration, electrolyte abnormalities, anemia, infection, arrhythmia, medication side effect. At this time CBC, BMP, EKG, UA, troponin, chest x-ray were ordered to evaluate for causes of weakness. At this time patient is in rate controlled atrial fibrillation. Patient has had dizziness during episodes like this previously. Lab work and CT were ordered and were normal. Patient would prefer to go home. He is able ambulate without difficulty. He will follow up with Dr. Greene. Patient's test results and vitals while in the ED were fully reviewed and discussed with the patient. Patient is stable and at this time does not need admission to the hospital. We have discussed strict return precautions and the importance of following up with their Primary Care Physician. Patient stated understanding and was given an opportunity to ask any questions. Patient is in agreement with plan. Jose Disclaimer: [place] Disclaimer: This electronic medical record was generated, in whole or in part, using a voice recognition dictation system. Departure Departure Impression: Primary Impression: Dizziness Additional Impression: Atrial fibrillation Disposition: HOME / SELF CARE / HOMELESS Condition: STABLE Referrals: NASH JENNINGS MD (PCP) Patient Instructions: Atrial Fibrillation, Dizziness Problem Qualifiers YANI NORTON MD May 30, 2021 20:36
--- NOTE | 2021-05-30 20:39 | RAD ---
PQRS Compliance Statement: One or more of the following individualized dose reduction techniques were utilized for this examinat ion: 1. Automated exposure control 2. Adjustment of the mA and/or kV according to patient size 3. Use of iterative reconstruction technique CT HEAD WITHOUT CONTRAST History: Reason: dizziness / Spl. Instructions: / History: Comparison: CT head without contrast August 13, 2020. Technique: Axial images are obtained of the head from the skull base through the vertex without IV co ntrast. Findings: No mass-effect, midline shift, extra-axial fluid collection, hemorrhage, or obvious acute infarction is identified. Basilar cisterns are patent. The ventricles and sulci are normal for patient age. There is periventricular white matter hypoattenu ation. This is a nonspecific finding but is commonly due to chronic small vessel ischemic disease. Bone windows demonstrate no acute calvarial abnormality. The visualized paranasal sinuses are clear. Mastoid air cells are well aerated. IMPRESSION: 1. No acute intracranial abnormality. 2. Periventricular white matter changes probably due to chronic small vessel ischemic disease. Electronically signed by: Lamonte Butterfield MD (05/30/2021 8:36 PM) [facility]
[2021-05-30 20:40] LABS: ALBUMIN 3.4 g/dL (3.4-5.0); MAGNESIUM 1.9 mg/dL (1.8-2.4); TOTAL BILIRUBIN 0.5 mg/dL (0.2-1.0); TOTAL PROTEIN 6.8 g/dL (6.4-8.2)
--- NOTE | 2021-05-30 20:59 | RAD ---
Exam: Chest one view INDICATION: Dizziness TECHNIQUE: Frontal view of the chest Comparisons: None FINDINGS: Heart is mildly enlarged. Pulmonary vessels are within normal limits. The lung and pleural spaces are clear. IMPRESSION: No acute pulmonary process. Electronically signed by: Anabella Borrero MD (05/30/2021 8:56 PM) [email or web address]
[2021-05-30 21:40] LABS: BILIRUBIN,URINE NEGATIVE (NEG); CLARITY,URINE CLEAR; COLOR,URINE YELLOW; NITRITE,URINE NEGATIVE (NEG); PROTEIN,URINE NEGATIVE (NEG-TRACE)
[2021-05-30 21:42] LABS: BACTERIA,URINE 0 /HPF (0-FEW); RBC,URINE 0 /HPF (0-2); WBC,URINE OCC /HPF (0-4)
[2021-05-30 21:58] VITALS: BP 178/91
== END 2021-05-30 22:05 | disposition home or self-care (01) ==
LOC: ER 19:08
DX: R42 Dizziness and giddiness (principal); I48.91 Unspecified atrial fibrillation; E11.9 Type 2 diabetes mellitus without complications; I10 Essential (primary) hypertension; E03.9 Hypothyroidism, unspecified; Z86.73 Personal history of transient ischemic attack (TIA), and cerebral infarction without residual deficits; Z90.49 Acquired absence of other specified parts of digestive tract; Z90.81 Acquired absence of spleen
CPT/HCPCS: 36415; 70450; 71045; 80053; 81001; 83735; 83880; 84484; 85025; 99285-25